=== PATIENT | male | born 1990 | race Caucasian/White ===

== ENCOUNTER 2017-02-11 21:48 | Emergency (ER) | payer OTHER ==
[2017-02-11 21:58] VITALS: TEMP 97.9
--- NOTE | 2017-02-11 22:44 | EDPHY ---
H & P Stated Complaint: n/v, KENNEDY HPI/ROS: HPI CHIEF COMPLAINT: Nausea, vomiting, Opiate withdrawal HISTORY OF PRESENT ILLNESS: This patient very pleasant 26-year-old male, no significant medical history however recent surgical history of a tib-fib fracture from a ski accident initially had surgery on early December, and then had surgery again early January for revision. He has been taking opioids specifically oxycodone 5 mg x2 every 3 hours as well as OxyContin 15 mg 3 times per day. Been taking these medications for close to 2 months. Presents to the emergency room as he stopped taking them worse been tapering them over the past 3 days. Patient tells me he has been having nausea vomiting and feels like he is going to withdrawal. He denies chest pain shortness of breath, fever neck pain abdominal pain. His main complaint is nausea vomiting and headache. His surgery was done at [facility]. He was initially seen at [facility]. Upon arrival here in emergency room appears well nontoxic no acute distress. Not actively vomiting stable vital signs. Past Medical History: No significant medical history Past Surgical History: Recent right tib-fib surgery Social History: Denies daily use of drugs alcohol tobacco products is a [employer] student Family History: Noncontributory ROS REVIEW OF SYSTEMS: A comprehensive 10 point review of systems is otherwise negative aside from elements mentioned in the history of present illness. Exam Constitutional appears well nontoxic vital signs reviewed, triage nursing summary reviewed, vital signs reviewed, awake/alert. Eyes normal conjunctivae and sclera, EOMI, PERRLA. HENT normal inspection, atraumatic, moist mucus membranes, no epistaxis, neck supple/ no meningismus, no raccoon eyes. Respiratory clear to auscultation bilaterally, normal breath sounds, no respiratory distress, no wheezing. Cardiovascular rate normal, regular rhythm, no murmur, no edema, distal pulses normal. Gastrointestinal soft, non-tender, no rebound, no guarding, normal bowel sounds, no distension, no pulsatile mass. Genitourinary no CVA tenderness. Musculoskeletal Right lower extremity: neurovascular intact there is incision lines down the anterior right tibia consistent with recent surgery no signs of infection. no midline vertebral tenderness, full range of motion, no calf swelling, no tenderness of extremities, no meningismus, good pulses, neurovascularly intact. Skin pink, warm, & dry, no rash, skin atraumatic. Neurologic awake, alert and oriented x 3, AAOx3, moves all 4 extremities equally, motor intact, sensory intact, CN II-XII intact, normal cerebellar, normal vision, normal speech. Psychiatric normal mood/affect. Heme/Lymph/Immune no lymphadenopathy. Differential Diagnosis: Includes but is not limited to in a particular order opioid withdrawal, electrolyte disturbance, dehydration, acute nausea vomiting from opiate withdrawal Medical Decision Making: Plan for this patient had an IV established obtain blood work, patient be hydrated with normal saline gently, 2 L normal saline ordered, IV Zofran, check electrolytes and basic blood work and re-evaluate. Re-evaluation: 1241: Re-evaluation at this time this patient is resting comfortably no acute distress. Patient is not vomiting. His vital signs are stable. He is not tachycardic he does not have pyelo reaction, he is not diaphoretic. No evidence is going to severe narcotic withdrawal. I will allow him to go home with nausea medicine. Zofran prescribed for him. He has had 2 L of fluid here. No vomiting no fever no chest pain or shortness of breath. Appears well otherwise nontoxic. He does understand return emergency room if develops worsening symptoms includes high fever, vomiting Source: Patient - Personal History Current Tetanus/Diphtheria Vaccine: Yes Current Tetanus Diphtheria and Acellular Pertussis (TDAP): Yes - Medical/Surgical History Hx Asthma: No Hx Chronic Respiratory Disease: No Hx Diabetes: No Hx Cardiac Disease: No Hx Renal Disease: No Hx Cirrhosis: No Hx Alcoholism: No Hx HIV/AIDS: No Hx Splenectomy or Spleen Trauma: No Other PMH: PMH: ortho rib fx,. PSH:R Tibia fx - Social History Smoking Status: Former smoker Constitutional: Initial Vital Signs Temperature (C) 36.6 C 02/11/17 21:55 Heart Rate 99 02/11/17 21:55 Respiratory Rate 16 02/11/17 21:55 Blood Pressure 112/73 02/11/17 21:55 O2 Sat (%) 97 02/11/17 21:55 O2 Delivery Mode Room Air Allergies/Adverse Reactions: NSAIDS (Non-Steroidal Anti-Inflamma Allergy (Verified 02/11/17 21:54) Sulfa (Sulfonamide Antibiotics) Allergy (Verified 02/11/17 21:54) Home Medications: Medication Instructions Recorded Colace 03/29/17 Tylenol 02/11/17 Ondansetron HCl [Zofran] 4 mg PO Q4-6PRN PRN #10 tablet 02/12/17 Medical Decision Making - Data Points Laboratory Results: Laboratory Results 02/11/17 23:20 02/11/17 23:20 02/11/17 02/11/17 23:20 23:20 WBC 6.85 10^3/uL 10^3/uL (3.80-9.50) RBC 4.38 10^6/uL L 10^6/uL (4.40-6.38) Hgb 12.7 g/dL L g/dL (13.7-17.5) Hct 37.1 % L % (40.0-51.0) MCV 84.7 fL fL (81.5-99.8) MCH 29.0 pg pg (27.9-34.1) MCHC 34.2 g/dL g/dL (32.4-36.7) RDW 11.2 % L % (11.5-15.2) Plt Count 288 10^3/uL 10^3/uL (150-400) MPV 9.2 fL fL (8.7-11.7) Neut % (Auto) 65.2 % % (39.3-74.2) Lymph % (Auto) 26.4 % % (15.0-45.0) [place] % (Auto) 5.8 % % (4.5-13.0) Eos % (Auto) 2.0 % % (0.6-7.6) Baso % (Auto) 0.3 % % (0.3-1.7) Nucleat RBC Rel Count 0.0 % % (0.0-0.2) Absolute Neuts (auto) 4.46 10^3/uL 10^3/uL (1.70-6.50) Absolute Lymphs (auto) 1.81 10^3/uL 10^3/uL (1.00-3.00) Absolute Monos (auto) 0.40 10^3/uL 10^3/uL (0.30-0.80) Absolute Eos (auto) 0.14 10^3/uL 10^3/uL (0.03-0.40) Absolute Basos (auto) 0.02 10^3/uL 10^3/uL (0.02-0.10) Absolute Nucleated RBC 0.00 10^3/uL 10^3/uL (0-0.01) Immature Gran % 0.3 % % (0.0-1.1) Immature Gran # 0.02 10^3/uL 10^3/uL (0.00-0.10) Sodium 139 mEq/L mEq/L (134-144) Potassium 4.5 mEq/L mEq/L (3.5-5.2) Chloride 102 mEq/L mEq/L (97-110) Carbon Dioxide 28 mEq/l mEq/l (22-31) Anion Gap 9 mEq/L mEq/L (8-16) BUN 12 mg/dL mg/dL (7-23) Creatinine 0.9 mg/dL mg/dL (0.7-1.3) Estimated GFR > 60 Glucose 90 mg/dL mg/dL (70-100) Calcium 9.8 mg/dL mg/dL (8.5-10.4) Medications Given: Discontinued Medications Sodium Chloride (Ns) 1,000 mls @ 0 mls/hr IV ONCE ONE PRN Reason: Wide Open Stop: 02/11/17 22:53 Last Admin: 02/11/17 23:23 Dose: 1,000 mls Ondansetron HCl (Zofran) 4 mg IVP EDNOW ONE Stop: 02/11/17 22:53 Last Admin: 02/11/17 23:18 Dose: 4 mg Departure - Departure Disposition: Home, Routine, Self-Care Clinical Impression: Opioid withdrawal Condition: Good Instructions: Acute Nausea and Vomiting (ED) Additional Instructions: 1. Return emergency room if he develops any worsening symptoms questions or concerns. This includes worsening vomiting we do not feel well. Please stay well-hydrated drink lots of fluids. Take Zofran as needed for nausea. Referrals: IFEANYI BARNES [Other] - As per Instructions Prescriptions: Ondansetron HCl [Zofran] 4 mg PO Q4-6PRN PRN #10 tablet PRN Reason: Nausea/Vomiting, Use 1st
[2017-02-11] MEDS ORDERED: NS 1,000 ML IV ONE (22:52)
[2017-02-11] MEDS ORDERED: ONDANSETRON 4 MG/2 ML VIAL IVP ONE (22:52)
[2017-02-11 23:32] LABS: % IMMATURE GRANULYOCYTES 0.3 % (0.0-1.1); ABSOLUTE IMMATURE GRANULOCYTES 0.02 10^3/uL (0.00-0.10); ADD DIFF? NO; ADD MORPH? NO; ADD SCAN? NO; ATYPICAL LYMPHOCYTE FLAG 30 (0-99); FRAGMENT RBC FLAG 0 (0-99); HEMATOCRIT 37.1 % (40.0-51.0); HEMOGLOBIN 12.7 g/dL (13.7-17.5); LEFT SHIFT FLG 0 (0-99); LIPEMIA HEMOLYSIS FLAG 90 (0-99); MEAN CELL HEMOGLOBIN CONCENTR. 34.2 g/dL (32.4-36.7); MEAN CELL VOLUME 84.7 fL (81.5-99.8); MEAN PLATELET VOLUME 9.2 fL (8.7-11.7); PLATELET CLUMPS FLAG 0 (0-99); PLATELET COUNT 288 10^3/uL (150-400); RED BLOOD CELL COUNT 4.38 10^6/uL (4.40-6.38); RED CELL DISTRIBUTION WIDTH 11.2 % (11.5-15.2)
[2017-02-11 23:40] LABS: ANION GAP 9 mEq/L (8-16); CALCIUM 9.8 mg/dL (8.5-10.4); CARBON DIOXIDE 28 mEq/l (22-31); CHLORIDE 102 mEq/L (97-110); CREATININE 0.9 mg/dL (0.7-1.3); GLOMERULAR FILTRATION RATE > 60; GLUCOSE 90 mg/dL (70-100); POTASSIUM 4.5 mEq/L (3.5-5.2); SODIUM 139 mEq/L (134-144)
[2017-02-12 00:02] VITALS: BP 118/70; PULSE 72; RESP 14; O2SAT 91
== END 2017-02-12 00:51 | disposition home or self-care (01) ==
DX: F11.23 Opioid dependence with withdrawal (principal); Z87.891 Personal history of nicotine dependence
CPT/HCPCS: 96374; J2405